=== PATIENT | male | born 1960 | race Caucasian/White ===

== ENCOUNTER 2017-04-14 05:09 | Inpatient (IN) | payer BC ==
[2017-04-14] VITALS (7 sets, daily range): BP systolic 78–94; BP diastolic 50–68
[~2017-04-14] VITALS: Ht 180.3 cm; Wt 103.0 kg
[2017-04-14] MEDS ORDERED: ONDANSETRON 4 MG/2 ML VIAL IV ONE ×2 (05:30→07:45)
[2017-04-14] MEDS ORDERED: HYDROMORPHONE 1 MG/1 ML DISP.SYRIN IV ONE ×3 (05:30→07:45)
[2017-04-14] MEDS ORDERED: IV NORMAL SALINE 1000 ML BAG IV ONE ×3 (05:30→08:15)
[2017-04-14] MEDS ORDERED: ONDANSETRON 4 MG/2 ML VIAL ONE ×2 (05:36→07:55)
--- NOTE | 2017-04-14 05:42 | NUR ---
Pt to room, changed into gown and placed on monitor. Pt ST. Pt c/o N/V/D since last night. Pt also c/o severe flank to low back pain. Pt seen by . DORA established. Labs drawn and sent. Pt medicated for pain and nausea, will monitor for effects of medications. Fluid bolus infusing freely to gravity. Pt resting in position of comfort for self.
[2017-04-14 05:44] LABS: BASOPHILS % (AUTO) 0.3 % (0.0-2.0); EOSINOPHILS # (AUTO) 0.1 K/uL (0.0-0.7); EOSINOPHILS % (AUTO) 1.3 % (0.0-7.0); LYMPHOCYTES # (AUTO) 0.1 K/UL (0.8-4.8); LYMPHOCYTES % (AUTO) 2.3 % (20.5-51.5); MEAN CORPUSCULAR HEMOGLOBIN 26.3 UUG (27.0-31.0); MEAN CORPUSCULAR HGB CONC 33 g/dL (32.0-37.0); MEAN CORPUSCULAR VOLUME 80.2 FL (82.0-92.0); MONOCYTES # (AUTO) 0.4 K/UL (0.1-1.30); MONOCYTES % (AUTO) 6.6 % (0.0-11.0); NEUTROPHILS # (AUTO) 5.5 K/UL (1.8-8.9); NEUTROPHILS % (AUTO) 89.5 % (38.5-71.5); PLATELET COUNT (AUTO) 160 K/UL (150-450); WHITE BLOOD COUNT (AUTO) 6.1 K/UL (4.0-11.2)
[2017-04-14 05:46] LABS: CREATININE 1.4 mg/dL (0.6-1.3); POTASSIUM 4.2 mmol/L (3.5-5.1)
[2017-04-14] MEDS ORDERED: HYDROMORPHONE 1 MG/1 ML DISP.SYRIN ONE ×3 (05:47→07:55)
[2017-04-14 05:52] LABS: BILIRUBIN,DIRECT 0.2 mg/dL (0.0-0.2); TOTAL PROTEIN, SERUM 7.7 g/dL (6.4-8.2)
[2017-04-14 05:54] LABS: HEMOGLOBIN 19.3 G/DL (14.0-18.0); RED BLOOD CELL COUNT(AUTO) 7.35 MIL/UL (4.7-6.1)
[2017-04-14 06:05] LABS: EOSINOPHILS % (MANUAL) 2 % (0-8); LYMPHOCYTES % (MANUAL) 5 % (20-40); MONOCYTES % (MANUAL) 7 % (2-10); NEUTROPHILS % (MANUAL) 86 % (42-75)
--- NOTE | 2017-04-14 06:14 | NUR ---
Pt sts pain improving from medication. Pt repositioned for comfort. Fluid bolus completed at this time.
[2017-04-14] MEDS ORDERED: IV LACTATED RINGERS SOLUTION 1,000 ML IV ONE (06:27)
[2017-04-14] MEDS ORDERED: KETOROLAC TROMETHAMINE 30 MG INJ IVP ONE (06:30)
--- NOTE | 2017-04-14 06:37 | NUR ---
PATIENT AND PATIENT'S UNABLE TO RECALL MEDICATION NAMES AND DOSAGES AT THIS TIME
[2017-04-14] MEDS ORDERED: KETOROLAC TROMETHAMINE 30 MG INJ ONE (06:43)
--- NOTE | 2017-04-14 07:28 | NUR ---
Pt returned from CT. Fluid bolus cont infusing freely to gravity. Pt tolerating po fluids, no further vomiting noted at this time. Resting in position of comfort for self.
--- NOTE | 2017-04-14 07:45 | NUR ---
Pt ambulated to restroom with steady gait, stool specimen obtained and sent to lab.
--- NOTE | 2017-04-14 08:09 | NUR ---
Report given and care endorsed to Juan RN
--- NOTE | 2017-04-14 10:19 | NUR ---
sbar report to matt galloway, belongings list/admit order completed. pt to rm 222 via aleah
[2017-04-14] MEDS ORDERED: ONDANSETRON 4 MG/2 ML VIAL IV PRN (11:15)
[2017-04-14] MEDS: IV NS 1000 ML 1,000 ML IV PRN (12:23)
[2017-04-14] MEDS: HYDROMORPHONE 1 MG/1 ML DISP.SYRIN IV PRN (13:11)
--- NOTE | 2017-04-14 16:00 | NUR ---
temp. 102.0, bp 82/57, pulse 109. Patient red & flushed. cooling measures. code sepsis called. Orders for bcx2, ua, urine culture, lactic acid, urine drug screen. Fluid challenge continued with 1L NS wide open. antibiotics held for now. suspect viral. Patient alert & oriented. Procedures explained. Verbalized understanding.
[2017-04-14] MEDS ORDERED: IV NS 1000 ML 1,000 ML IV ONE (16:45)
[2017-04-14 17:25] LABS: *AMPHETAMINE, URINE NEGATIVE (NEGATIVE); *BARBITURATE, URINE NEGATIVE (NEGATIVE); *CANNABINOID, URINE NEGATIVE (NEGATIVE); *COCCAINE, URINE NEGATIVE (NEGATIVE); *OPIATE, URINE POSITIVE (NEGATIVE); *PHENCYCLIDINE SCREEN,URINE NEGATIVE (NEGATIVE)
--- NOTE | 2017-04-14 18:00 | NUR ---
VITALS HAVE INCREASED RELATIVELY SLOW, TEMP HAS RETURNED TO 99.5, AFTER FLUIDS. BP SHOULD BE CONTINUOUSLY MONITORED BEFORE PAIN MEDICATION PATIENT IS FREQUENTLY REQUESTING NARCOTICS DESPITE CONTRAINDICATION.
[2017-04-14] MEDS: ACETAMINOPHEN 325 MG TABLET PO PRN (18:42)
--- NOTE | 2017-04-14 19:11 | NUR ---
REPORT GIVEN TO INSPECTION MANAGER, PATIENT IS STABLE.
[2017-04-15 00:33] VITALS: BP 97/68
[2017-04-15] MEDS: IV NS 1000 ML 1,000 ML IV PRN ×2 (02:41→20:13)
[2017-04-15 04:00] VITALS: BP 99/64
[2017-04-15] MEDS: PANTOPRAZOLE SODIUM 40 MG TABLET.DR PO SCH (06:33)
[2017-04-15] MEDS: HYDROMORPHONE 1 MG/1 ML DISP.SYRIN IV PRN ×5 (06:56→23:24)
[2017-04-15] MEDS ORDERED: IV NS 1000 ML 1,000 ML IV ONE ×2 (07:00→09:00)
[2017-04-15 07:16] LABS: EOSINOPHILS # (AUTO) 0.1 K/uL (0.0-0.7); EOSINOPHILS % (AUTO) 2.6 % (0.0-7.0); HEMATOCRIT 47.9 % (40-50); HEMOGLOBIN 15.7 G/DL (14.0-18.0); LYMPHOCYTES # (AUTO) 0.4 K/UL (0.8-4.8); LYMPHOCYTES % (AUTO) 8.4 % (20.5-51.5); MEAN CORPUSCULAR HEMOGLOBIN 26.4 UUG (27.0-31.0); MEAN CORPUSCULAR HGB CONC 33 g/dL (32.0-37.0); MEAN CORPUSCULAR VOLUME 80.5 FL (82.0-92.0); MONOCYTES # (AUTO) 0.4 K/UL (0.1-1.30); MONOCYTES % (AUTO) 7.1 % (0.0-11.0); NEUTROPHILS # (AUTO) 4.1 K/UL (1.8-8.9); NEUTROPHILS % (AUTO) 81.9 % (38.5-71.5); PLATELET COUNT (AUTO) 121 K/UL (150-450); RED BLOOD CELL COUNT(AUTO) 5.95 MIL/UL (4.7-6.1)
[2017-04-15 07:44] LABS: CREATININE 1.4 mg/dL (0.6-1.3); MAGNESIUM 1.5 mg/dL (1.8-2.4); PHOSPHOROUS 1.4 mg/dL (2.5-4.9); POTASSIUM 3.8 mmol/L (3.5-5.1)
[2017-04-15 10:53] LABS: BAND % (MANUAL) 11 % (0-10); EOSINOPHILS % (MANUAL) 1 % (0-8); LYMPHOCYTES % (MANUAL) 12 % (20-40); MONOCYTES % (MANUAL) 7 % (2-10); NEUTROPHILS % (MANUAL) 69 % (42-75)
[2017-04-15 11:43] VITALS: BP 114/69
[2017-04-15] MEDS: MAGNESIUM SULFATE/D5W 100 ML IV SCH ×2 (12:57→14:45)
[2017-04-15 15:38] VITALS: BP 107/78
[2017-04-15] MEDS ORDERED: NEUTRA PHOS PACKET PO ONE (15:45)
[2017-04-15 20:00] VITALS: BP 105/69
--- NOTE | 2017-04-15 23:45 | NUR ---
Received bedside report from SILVIA Castorena. Patient awake c/o lower back pain. No SOB denies chest pain. Dilaudid 1 mg IVP adm.
[2017-04-16] MEDS: ZOLPIDEM 5 MG TABLET PO PRN ×2 (01:53→23:57)
[2017-04-16] MEDS: ACETAMINOPHEN 325 MG TABLET PO PRN (01:53)
[2017-04-16] MEDS: HYDROMORPHONE 1 MG/1 ML DISP.SYRIN IV PRN ×5 (03:32→20:04)
[2017-04-16] MEDS: IV NS 1000 ML 1,000 ML IV PRN ×2 (05:45→19:05)
[2017-04-16] MEDS: PANTOPRAZOLE SODIUM 40 MG TABLET.DR PO SCH (05:46)
[2017-04-16 06:31] VITALS: BP 101/76
--- NOTE | 2017-04-16 07:00 | NUR ---
No significant change. Medicated for pain PRN. Kept comfortable.
[2017-04-16 07:16] LABS: BASOPHILS % (AUTO) 0.2 % (0.0-2.0); CREATININE 1.2 mg/dL (0.6-1.3); EOSINOPHILS # (AUTO) 0.4 K/uL (0.0-0.7); EOSINOPHILS % (AUTO) 6.6 % (0.0-7.0); HEMATOCRIT 47.3 % (40-50); HEMOGLOBIN 15.6 G/DL (14.0-18.0); LYMPHOCYTES # (AUTO) 0.8 K/UL (0.8-4.8); LYMPHOCYTES % (AUTO) 14.1 % (20.5-51.5); MEAN CORPUSCULAR HEMOGLOBIN 26.9 UUG (27.0-31.0); MEAN CORPUSCULAR HGB CONC 33 g/dL (32.0-37.0); MEAN CORPUSCULAR VOLUME 81.5 FL (82.0-92.0); MONOCYTES # (AUTO) 0.5 K/UL (0.1-1.30); MONOCYTES % (AUTO) 7.6 % (0.0-11.0); NEUTROPHILS # (AUTO) 4.2 K/UL (1.8-8.9); NEUTROPHILS % (AUTO) 71.5 % (38.5-71.5); PHOSPHOROUS 1.9 mg/dL (2.5-4.9); PLATELET COUNT (AUTO) 127 K/UL (150-450); POTASSIUM 3.6 mmol/L (3.5-5.1); RED BLOOD CELL COUNT(AUTO) 5.81 MIL/UL (4.7-6.1); WHITE BLOOD COUNT (AUTO) 5.9 K/UL (4.0-11.2)
[2017-04-16] MEDS: POTASSIUM PHOSPHATE MM 5 MMOL in IV DEXTROSE 5% 100 ML IV SCH ×5 (08:20→13:02)
--- NOTE | 2017-04-16 08:30 | NUR ---
AWAKE COOPERATE WELL NO N/V STATE PAIN MED HELP TO RELIEF PAIN RESITNG WELL WITH CALL LIGHT IN REAH
[2017-04-16 12:10] VITALS: BP 106/72
--- NOTE | 2017-04-16 14:00 | NUR ---
STATE HE WAS HUNGRY STILL ON CLEAR LIQ DIET WILL INFORM
[2017-04-16 15:35] VITALS: BP 112/75
--- NOTE | 2017-04-16 17:00 | NUR ---
DR DANIELS ,T SEEN PATIENT AND DIET ADV TO REGULAR EAT MOD AMT NO N/V OR PAIN
--- NOTE | 2017-04-16 18:00 | NUR ---
HEMODYNAMIC STATUS STABLE PAIN UNDER CONTROL SAFETY MEASURE PROVIDED CALL YOUSIF IN REACH
[2017-04-16 19:00] VITALS: BP 103/70
--- NOTE | 2017-04-16 19:00 | NUR ---
PATIENT ALERT ORIENTED, NO SOB NO CHEST PAIN NOTED, ON PAIN MANAGEMENT, NO S/S OF DISTRESS.
[2017-04-16 19:35] LABS: *BILIRUBIN,URIN NEGATIVE (NEGATIVE); *BLOOD, URINE Trace-intact (NEGATIVE); *CLARITY,URINE CLEAR (CLEAR); *COLOR,URINE YELLOW (YELLOW); *KETONES,URINE NEGATIVE (NEGATIVE); *PROTEIN,URINE NEGATIVE (NEGATIVE); LEUKOCYTE ESTERASE ,URINE NEGATIVE (NEGATIVE); NITRITE, URINE NEGATIVE (NEGATIVE); UGLUCOSE NEGATIVE (NEGATIVE)
[2017-04-16 20:37] LABS: RBC,URINE 0-3 /HPF (0-3); WBC,URINE NONE SEEN /HPF (0-3)
[2017-04-17] MEDS: HYDROMORPHONE 1 MG/1 ML DISP.SYRIN IV PRN ×3 (00:14→08:27)
[2017-04-17] MEDS: IV NS 1000 ML 1,000 ML IV PRN ×2 (02:44→09:55)
--- NOTE | 2017-04-17 03:52 | NUR ---
PATIENT IV SITE INFILTRATED, IV SITE WAS CHANGED TO DIFFERENT SITE, TOLERATE PROCEDURE WELL.
[2017-04-17 04:00] VITALS: BP 106/61
[2017-04-17] MEDS: PANTOPRAZOLE SODIUM 40 MG TABLET.DR PO SCH (06:16)
[2017-04-17 07:11] LABS: CREATININE 1.2 mg/dL (0.6-1.3); MAGNESIUM 1.7 mg/dL (1.8-2.4); PHOSPHOROUS 2.4 mg/dL (2.5-4.9); POTASSIUM 4.1 mmol/L (3.5-5.1)
[2017-04-17 07:20] LABS: BASOPHILS % (AUTO) 0.4 % (0.0-2.0); EOSINOPHILS # (AUTO) 0.4 K/uL (0.0-0.7); EOSINOPHILS % (AUTO) 8.5 % (0.0-7.0); HEMOGLOBIN 15.6 G/DL (14.0-18.0); LYMPHOCYTES # (AUTO) 0.9 K/UL (0.8-4.8); LYMPHOCYTES % (AUTO) 20.1 % (20.5-51.5); MEAN CORPUSCULAR HEMOGLOBIN 26.9 UUG (27.0-31.0); MEAN CORPUSCULAR HGB CONC 33 g/dL (32.0-37.0); MEAN CORPUSCULAR VOLUME 80.9 FL (82.0-92.0); MONOCYTES # (AUTO) 0.4 K/UL (0.1-1.30); MONOCYTES % (AUTO) 9.3 % (0.0-11.0); NEUTROPHILS # (AUTO) 2.7 K/UL (1.8-8.9); NEUTROPHILS % (AUTO) 61.7 % (38.5-71.5); PLATELET COUNT (AUTO) 153 K/UL (150-450)
--- NOTE | 2017-04-17 07:22 | NUR ---
PATIENT SLEPT MOST OF THE NIGHT ON PAIN MANAGEMENT, NO SOB NO CHEST PAIN NOTED. CONT TO MONITOR.
[2017-04-17 07:30] LABS: WHITE BLOOD COUNT (AUTO) 4.4 K/UL (4.0-11.2)
--- NOTE | 2017-04-17 08:00 | NUR ---
AWAKE ALERT COOPERATE WELL NO NAUSEA OR ABD PAIN AT THIS TIME EAT BREAKFAST WELL CALL YOUSIF IN REACH
[2017-04-17] MEDS ORDERED: MAGNESIUM OXIDE 400 MG TABLET PO ONE (09:45)
--- NOTE | 2017-04-17 10:00 | NUR ---
ELECTRICAL AUTOMATION ENGINEER FOR Frances FUNEZ C SEE PATIENT AND LAB RESULT MAG OX GIVE ORDER
--- NOTE | 2017-04-17 11:30 | NUR ---
DR DANIELS SEE PATIENT AND ORDER OK TO D/C HOME D/C INSTRUCTION REGARDING TO F/U WITH OWN PMD CALL FOR APPIONTMENT AND CONTINUE MEDICINE ORDERED VERBALIZES UNDERSTAND AND SIGNS D/C SHEET H; DISCONTINUE PRIOR D/C HOME TODAY PATIENT STATE DOES NOT TAKE MEDICINE AT HOME
[2017-04-17 11:41] VITALS: BP 116/77
--- NOTE | 2017-04-17 12:35 | NUR ---
D/C HOME WITH HIS BELONGING CONDITION STABLE ACCOMPANIES WITH FRIEND IV HL WAS D/C
== END 2017-04-17 12:40 | disposition home or self-care (01) | DRG 871 ==
LOC: ER 05:14 → TELE 09:54 → MED 04-15 14:55
PROVIDERS: ADMIT Nurse Practitioner Acute Care; ATTEND Nurse Practitioner Acute Care
DX: A41.89 Other specified sepsis (principal); N17.0 Acute kidney failure with tubular necrosis; A08.39 Other viral enteritis; E86.0 Dehydration; Z83.3 Family history of diabetes mellitus; Z82.49 Family history of ischemic heart disease and other diseases of the circulatory system; Z88.1 Allergy status to other antibiotic agents; D50.9 Iron deficiency anemia, unspecified; B97.89 Other viral agents as the cause of diseases classified elsewhere; D75.1 Secondary polycythemia
CPT/HCPCS: 36415; 74150; 80307; 83605; 83690; 83735; 84100; 85025; 87040; 87086; 87177; 89055; 93005; J1170; J1885; J2405; J3475; J3490; J7030; J7060; J7120

== ENCOUNTER 2021-03-05 00:49 | Inpatient (IN) | payer BC ==
[~2021-03-05] VITALS: Ht 180.3 cm; Wt 95.3 kg
[~2021-03-05 00:49] MED LIST: [UNRECOGNIZED DRUG - REMARK]
--- NOTE | 2021-03-05 00:50 | NUR ---
MD Smiley doing MSE on patient in triage bay.
[2021-03-05] MEDS ORDERED: PROCHLORPERAZINE EDISYLATE 10 MG/2 ML VIAL IV ONE (01:00)
--- NOTE | 2021-03-05 01:00 | NUR ---
60 y/o male presents to ED from home via [facility] for Nausea/Vomiting/Abd pain thats been persistent for 1 week. Pain is described as Sharp (8/10) and does radiate towards his back. Is present at rest and on exertion and patient did not try anything to relieve the pain. Patient is HIV positive. Patient is A&Ox4. No SI/HI/AH/VH. Able to take commands and make needs known. Steady gait. Patient is Tachycardic on initial assessment but has since normalized. No CP, no diaphoresis, no palpitations. No SOB, Sats > 94% on room air. GI/: Besides chief complaint - no other issues present. Patient has had a few episodes of emesis here in ED. No dysuria or hematemesis
[2021-03-05] MEDS ORDERED: HYDROMORPHONE 1 MG/1 ML DISP.SYRIN ONE (01:10)
[2021-03-05] MEDS ORDERED: PROCHLORPERAZINE EDISYLATE 10 MG/2 ML VIAL ONE (01:10)
[2021-03-05] MEDS ORDERED: BARIUM SULFATE 450 ML ORAL.SUSP ONE (01:18)
--- NOTE | 2021-03-05 01:20 | NUR ---
Patient given Grastrografin at this time. Instructed to finish mixture over the course of an hour. Radiology made aware of start time.
[2021-03-05] MEDS ORDERED: DIATR MEGLU/DIATRIZOATE SODIUM 30 ML BOTTLE ONE (01:21)
[2021-03-05] MEDS: HYDROMORPHONE 1 MG/1 ML DISP.SYRIN IV PRN ×2 (01:23→08:55)
[2021-03-05] MEDS: NORMAL SALINE FLUSH 10 ML DISP.SYRIN IV SCH ×4 (01:23→21:22)
[2021-03-05 01:26] LABS: BASOPHILS # (AUTO) 0.1 K/uL (0.0-8.0); EOSINOPHILS # (AUTO) 0.3 K/uL (0.0-0.7); NEUTROPHILS # (AUTO) 10.6 K/uL (1.8-8.9); PLATELET COUNT (AUTO) 311 K/uL (152-348)
[2021-03-05 01:28] LABS: BASOPHILS % (AUTO) 0.5 % (0.0-2.0); EOSINOPHILS % (AUTO) 2.4 % (0.0-7.0); LYMPHOCYTES % (AUTO) 14.7 % (20.5-51.5); MEAN CORPUSCULAR HEMOGLOBIN 29.6 uug (23.8-33.4); MEAN CORPUSCULAR HGB CONC 33 g/dL (32.5-36.3); MEAN CORPUSCULAR VOLUME 89.3 fL (73.0-96.2); MONOCYTES # (AUTO) 0.9 K/uL (2.0-10.0); MONOCYTES % (AUTO) 6.4 % (0.0-11.0); WHITE BLOOD COUNT (AUTO) 13.9 K/uL (3.6-10.2)
[2021-03-05 01:36] LABS: RED BLOOD CELL COUNT(AUTO) 7.28 MIL/uL (4.06-5.63)
--- NOTE | 2021-03-05 01:36 | NUR ---
Patient unable to recall any of his prescription medication. Unable to do any medication reconcilation at this time.
[2021-03-05 01:38] LABS: HEMOGLOBIN 21.5 g/dL (12.5-16.3)
--- NOTE | 2021-03-05 01:39 | NUR ---
Critical lab result called in by Jed in Lab. Hgb: 21.5 Hct 65.0 Verbal readback done. Information passed to Dr. Smiley.
[2021-03-05] MEDS ORDERED: IV NORMAL SALINE 1,000 ML IV ONE ×2 (01:45→02:15)
[2021-03-05 01:47] LABS: BILIRUBIN,DIRECT 0.1 mg/dL (0.0-0.2); BILIRUBIN,TOTAL 0.7 mg/dL (0.2-1.0); CREATININE 1.6 mg/dL (0.6-1.3); MAGNESIUM 2.2 mg/dL (1.8-2.4); POTASSIUM 5.8 mmol/L (3.5-5.1)
[2021-03-05 02:35] LABS: *BILIRUBIN,URIN 2+ (NEGATIVE); *BLOOD, URINE 2+ (NEGATIVE); *COLOR,URINE AMBER (YELLOW); *KETONES,URINE NEGATIVE (NEGATIVE); *UROBILINOGEN,URINE 0.2 E.U./dl (NORMAL); LEUKOCYTE ESTERASE ,URINE NEGATIVE (NEGATIVE); NITRITE, URINE NEGATIVE (NEGATIVE); PH,URINE 5.5 (5.0-8.0); UGLUCOSE NEGATIVE (NEGATIVE)
[2021-03-05 02:37] LABS: *CLARITY,URINE HAZY (CLEAR)
[2021-03-05 02:45] LABS: BACTERIA,URINE FEW /HPF (NONE SEEN); MUCUS,URINE MODERATE /LPF (0-FEW); SQUAMOUS EPITHELIAL CELL,UR MODERATE /HPF (NONE SEEN)
[2021-03-05] MEDS ORDERED: IV NORMAL SALINE 500 ML BAG IV ONE (03:00)
[2021-03-05] MEDS ORDERED: SWABABLE VALVE TRANSFER SET EA MC ONE (03:06)
[2021-03-05] MEDS ORDERED: IOHEXOL 300MG/ML 100 ML INFUS..BTL ONE (03:07)
[2021-03-05] MEDS ORDERED: IV NORMAL SALINE 250 ML IV ONE (03:07)
--- NOTE | 2021-03-05 03:09 | NUR ---
Patient down to CT at this time
--- NOTE | 2021-03-05 03:24 | NUR ---
Patient back from CT
--- NOTE | 2021-03-05 04:18 | NUR ---
Dr. Smiley on phone with [facility] entertainment production professional Dr. Hennessy. She has accepted patient for admission with MATTHEW status - Dx Abdominal Pain
[2021-03-05] MEDS ORDERED: ONDANSETRON 4 MG/2 ML VIAL IV PRN (04:30)
[2021-03-05] MEDS ORDERED: MAGNESIUM HYDROXIDE 30 ML LIQUID UDC PO PRN (04:30)
[2021-03-05] MEDS ORDERED: MORPHINE SULFATE 2 MG/1 ML DISP.SYRIN IV PRN (04:30)
[2021-03-05] MEDS ORDERED: IV 1/2NS 1000 ML 1,000 ML IV PRN (04:30)
[2021-03-05] MEDS ORDERED: ACETAMINOPHEN 325 MG TABLET PO PRN (04:30)
[2021-03-05] MEDS ORDERED: Z GUARD REMEDY PASTE 57 GM TUBE TOP PRN (04:30)
--- NOTE | 2021-03-05 04:50 | NUR ---
Patient transferred to Room 309 via Wheelchair under the care of Raffaele RN - MATTHEW status. Belongings with patient. VSS. Stable condition.
--- NOTE | 2021-03-05 04:50 | NUR ---
ADMITTED PATIENT ON TELEMETRY TD UNDER THE CARE OF DAYANA MANUFACTURING SPECIALIST, PATIENT ALERT ORIENTED, NO SOB NO CHEST PAIN, NO TEETH, NPO AT THIS TIME, COMPLAIN OF ABDOMINAL PAIN, WILL MEDICATE FOR PAIN. PATIENT HAD SOFT LARGE BM AND VOIDING FREELY. CONT TO MONITOR.
[2021-03-05 05:54] VITALS: BP 123/84
--- NOTE | 2021-03-05 07:25 | NUR ---
PATIENT ASLEEP BUT AROUSABLE, TELE MONITOR SINUS RHYTHM 95, RA, PATIENT MEDICATION EFFECTIVE AT THIS TIME, CALL LIGHT WITHIN REACH, NO FURTHER EPISODE OF NAUSEA VOMITING AT THIS TIME. ENDORSE TO NEXT SHIFT.
--- NOTE | 2021-03-05 07:30 | NUR ---
Patient report received from night assistant. Pt is alert and oriented x 4. Skin in tact. Pt is on MATTHEW, sinus rhythm on monitor. Comfortable on room air, no reports of shortness of breath. Pt is continent and able to ambulate. Pt complains of diarrhea and abdominal pain. IV right AC 20g running 125 ml/hr. Patient is currently NPO. Bed in low and locked position. Safety precautions in place. Call light with in reach.
[2021-03-05] MEDS: PANTOPRAZOLE SODIUM 40 MG VIAL IV SCH (08:40)
[2021-03-05 08:45] LABS: BASOPHILS # (AUTO) 0.1 K/uL (0.0-8.0); EOSINOPHILS # (AUTO) 0.2 K/uL (0.0-0.7); EOSINOPHILS % (AUTO) 3.3 % (0.0-7.0); HEMATOCRIT 56.2 % (36.7-47.1); HEMOGLOBIN 18.1 g/dL (12.5-16.3); LYMPHOCYTES # (AUTO) 1.6 K/uL (20.0-40.0); LYMPHOCYTES % (AUTO) 20.5 % (20.5-51.5); MEAN CORPUSCULAR HEMOGLOBIN 29.5 uug (23.8-33.4); MEAN CORPUSCULAR HGB CONC 32 g/dL (32.5-36.3); MEAN CORPUSCULAR VOLUME 91.3 fL (73.0-96.2); MONOCYTES # (AUTO) 0.8 K/uL (2.0-10.0); MONOCYTES % (AUTO) 10.3 % (0.0-11.0); NEUTROPHILS % (AUTO) 64.9 % (38.5-71.5); PLATELET COUNT (AUTO) 232 K/uL (152-348); RED BLOOD CELL COUNT(AUTO) 6.16 MIL/uL (4.06-5.63); WHITE BLOOD COUNT (AUTO) 7.6 K/uL (3.6-10.2)
[2021-03-05 08:53] LABS: BILIRUBIN,TOTAL 0.5 mg/dL (0.2-1.0); CREATININE 1.2 mg/dL (0.6-1.3); MAGNESIUM 1.9 mg/dL (1.8-2.4); PHOSPHOROUS 3.1 mg/dL (2.5-4.9); POTASSIUM 5.1 mmol/L (3.5-5.1); TOTAL PROTEIN, SERUM 6.4 g/dL (6.4-8.2)
[2021-03-05 09:26] LABS: *BILIRUBIN,URIN NEGATIVE (NEGATIVE); *CLARITY,URINE SLIGHTLY CLOUDY (CLEAR); *COLOR,URINE YELLOW (YELLOW); *KETONES,URINE NEGATIVE (NEGATIVE); *UROBILINOGEN,URINE 0.2 E.U./dl (NORMAL); LEUKOCYTE ESTERASE ,URINE NEGATIVE (NEGATIVE); NITRITE, URINE NEGATIVE (NEGATIVE); PH,URINE 5.5 (5.0-8.0); UGLUCOSE NEGATIVE (NEGATIVE)
[2021-03-05 10:09] LABS: *BLOOD, URINE TRACE (NEGATIVE)
[2021-03-05] MEDS ORDERED: INSULIN REGULAR, HUMAN 300 UNIT/3 ML VIAL SQ PRN (10:45)
[2021-03-05] MEDS ORDERED: DEXTROSE 50% 50 ML DISP.SYRIN IV PRN (10:45)
[2021-03-05] MEDS: levoFLOXacin 500 MG/D5W 500 MG in PREMIXED 1 EACH IV SCH (11:37)
[2021-03-05] MEDS: IV 1/2NS 1000 ML 1,000 ML IV SCH ×2 (11:40→15:09)
[2021-03-05 12:00] VITALS: BP 119/77
[2021-03-05] MEDS: BLOOD SUGAR DIAGNOSTIC 1 EACH STRIP VI SCH ×2 (12:00→18:18)
[2021-03-05] MEDS: MORPHINE SULFATE 4 MG/1 ML DISP.SYRIN IV PRN ×3 (13:13→22:41)
[2021-03-05 13:54] LABS: *URINE TOTAL PROTEIN RANDOM 45.7 mg/dL (<150/24HR)
--- NOTE | 2021-03-05 14:16 | NUR ---
Field Technical Assistant consultation: This INFORMATICA MDM ARCHITECT met with the patient today to assess for psychosocial needs. Patient is a 60 year old male, who came to the ED on 03/05/21 for abdominal pain, after having pain, vomiting, and diarrhea over a span of 3 days. Patient is awake, alert, oriented x 4, receptive to meeting with this INFORMATICA MDM ARCHITECT. Patient lives at home with his , Beck Mei, who is his emergency contact. Patient confirmed his address, [address] [place] [address]. [address], [place] [address], . Patient's Beck's phone number is [phone]. Patient stated that he also has 2 foster children at home, 2 boys, 7 and 4 years old. This INFORMATICA MDM ARCHITECT explored patient's psychosocial needs, and patient stated that he is HIV+, however is under the regular care of his PCP, compliant with his medications, and has no concerns at this time. Patient stated that he has the necessary supportive services in place, and did not feel he needed any additional services. Patient did not report any current use of substances, no hx of mental illness. Discharge plans discussed, and patient stated that he would be returning home after this hospitalization. At this time, no further SS interventions are needed, however social media content specialist will remain available, as needed.
[2021-03-05] MEDS ORDERED: VIT D3 PO (14:59)
[2021-03-05] MEDS ORDERED: VILA40TA PO (14:59)
[2021-03-05] MEDS ORDERED: LINA1TAB5 PO (14:59)
[2021-03-05] MEDS ORDERED: ROSU20TA2 PO (14:59)
[2021-03-05] MEDS ORDERED: ASPI81TA31 PO (14:59)
[2021-03-05] MEDS ORDERED: TADA5TAB2 PO (14:59)
[2021-03-05] MEDS ORDERED: DOLU50TA PO (14:59)
[2021-03-05] MEDS ORDERED: EMTR1TAB13 PO (14:59)
[2021-03-05] MEDS ORDERED: LISI20TA30 PO (14:59)
[2021-03-05] MEDS: METRONIDAZOLE 500 MG/NS 100ML 500 MG in PREMIXED 1 EACH IV SCH ×2 (15:01→21:22)
[2021-03-05 16:00] VITALS: BP 115/81
[2021-03-05] MEDS ORDERED: CELE200C PO (18:45)
[2021-03-05 18:46] LABS: BACTERIA,URINE NONE SEEN /HPF (NONE SEEN); MUCUS,URINE FEW /LPF (0-FEW); SQUAMOUS EPITHELIAL CELL,UR FEW /HPF (NONE SEEN); WBC,URINE 0-3 /HPF (0-3)
[2021-03-05 18:53] LABS: EOSINOPHILS % (MANUAL) 6 % (0-8); LYMPHOCYTES % (MANUAL) 17 % (20-40); MONOCYTES % (MANUAL) 2 % (2-10); NEUTROPHILS % (MANUAL) 75 % (42-75)
[2021-03-05] MEDS ORDERED: MODA100T29 PO (18:55)
[2021-03-05 19:22] LABS: *CREATININE,URINE 134.4 mg/dL (30-125)
[2021-03-05] MEDS ORDERED: HOME MED MISCELLANEOUS XX SCH (19:30)
--- NOTE | 2021-03-05 19:30 | NUR ---
Patient resting in bed. Alert and oriented x 4. Patient transferred from MATTHEW to TELE. Patient is sinus rhythm on monitor. No reports of pain at this time. Comfortable on room air. No reports of chest pain or signs of distress. Patient is no longer NPO, changed to full liquid diet. Pt resting comfortably. Home medications sent to pharmacy with orders from to continue.
--- NOTE | 2021-03-05 19:30 | NUR ---
ROUNDS MADE AND B/S REPORT FROM THE DAY SHIFT RN DONE . DAY SHIFT RN AND SPINE NURSE RN AT B/S AND INTRODUCE SELF TO PATIENT . ASKED PATIENT IF HE NEEDS SOMETHING HE SAID NONE FOR NOW .
[2021-03-05] MEDS ORDERED: CELECOXIB 200 MG CAPSULE PO PRN (19:45)
[2021-03-05 20:00] VITALS: BP 119/92
--- NOTE | 2021-03-05 21:25 | NUR ---
AT B/S GIVEN FLAGYL IVF ,CHECKED IVF 1/2 NS AT 80 ML/HR SITE PATENT AND INTACT .
--- NOTE | 2021-03-05 21:30 | NUR ---
PATIENT ASKED FOR SOMETHING TO EAT INFORMED HIS ON FULL LIQUID HE SAID HIS BEEN NOTHING BY MOUTH SINCE ADMISSION AND HE SAID NOTHING SAUCEDO WITH HIS ABDOMEN NO BM NO DIARRHEA .
--- NOTE | 2021-03-05 21:45 | NUR ---
PATIENT CALLED AND REQUESTING FOR FOOD . GIVEN 1 HAM SANDWICH AND 1 TURKEY SANDWICH . PATIENT ABLE TO FEED SELF .
--- NOTE | 2021-03-05 22:10 | NUR ---
patient screaming and yelling went to the station and wants pain medication and per patients been asking for it for 1 hour ,but its not true he called the desk and the media monitor,answered the light and called me the RN at this time i was in room 314 so i said i will be there as soon as i finish with bed 314.given morphine prn medication see emar .
--- NOTE | 2021-03-05 22:24 | NUR ---
given Zofran to help him with his stomach ,he said been going to the bathroom yesterday i asked if he have diarrhea he said no diarrhea no bm
--- NOTE | 2021-03-05 22:24 | NUR ---
called again and wants medication to help him the pain i said said he had the morphine but this time he wants all medication that can help him with pain . given [place] po.patient very upset and very anxious .
--- NOTE | 2021-03-05 22:30 | NUR ---
PATIENT REMOVED HEART MONITOR ,FIGURE REFINISHER AND REPAIRER CALLED RN ATTENTION RN WENT TO ROOM ADVISED THAT HE NEEDS TO WEAR THE HEART MONITOR PATIENT REFUSED HEART MONITOR AND HE SAID HE HAD NO PROBLEM .
[2021-03-05] MEDS: HYDROCODONE/APAP 5-325MG TABLET PO PRN (22:42)
[2021-03-06] VITALS: BP 118/87
[2021-03-06] MEDS ORDERED: LORAZEPAM 2 MG/1 ML VIAL IV ONE
--- NOTE | 2021-03-06 00:05 | NUR ---
given x1mg ivp Ativan as per patient requested unable to sleep and very anxious .
--- NOTE | 2021-03-06 00:20 | NUR ---
f/s done blood sugar 148 mg/dl , as per patient dont want insulin and is good with his diet .
--- NOTE | 2021-03-06 01:30 | NUR ---
WENT TO CHECKED ON PATIENT ENCOURAGE TO WEAR HEART MONITOR PATIENT STRONGLY REFUSED .
--- NOTE | 2021-03-06 02:00 | NUR ---
PATIENT IN BED SLEEPING NO RESPIRATORY DISTRESS BREATHING EVEN AND UNLABORED IN BED ASLEEP .IVF IN FUSING AND IN PROGRESS .
[2021-03-06 04:00] VITALS: BP 113/77
[2021-03-06] MEDS: METRONIDAZOLE 500 MG/NS 100ML 500 MG in PREMIXED 1 EACH IV SCH ×3 (05:09→22:20)
[2021-03-06] MEDS: NORMAL SALINE FLUSH 10 ML DISP.SYRIN IV SCH ×3 (05:10→22:20)
[2021-03-06] MEDS: IV 1/2NS 1000 ML 1,000 ML IV SCH (05:23)
--- NOTE | 2021-03-06 07:45 | NUR ---
RECEIVED PATIENT IN BED. PATIENT AOX4. COMPLAINING THAT HE IS STILL ON FULL LIQUID DIET AND HE WANTS TO HAVE A REGULAR BREAKFAST NOW. REFUSED TO WEAR HEART MONITOR PER MD ORDER. PATIENT DEMANDED NURSE CALL MD FOR DIET CHANGE. SAFETY AND FALL PREVENTION IN PLACE. CALL LIGHT IN REACH. WILL CONTINUE TO MONITOR.
[2021-03-06 07:48] LABS: BASOPHILS # (AUTO) 0.1 K/uL (0.0-8.0); BASOPHILS % (AUTO) 1.6 % (0.0-2.0); EOSINOPHILS # (AUTO) 0.4 K/uL (0.0-0.7); EOSINOPHILS % (AUTO) 6.8 % (0.0-7.0); HEMATOCRIT 54.7 % (36.7-47.1); HEMOGLOBIN 17.9 g/dL (12.5-16.3); LYMPHOCYTES # (AUTO) 1.3 K/uL (20.0-40.0); LYMPHOCYTES % (AUTO) 25.6 % (20.5-51.5); MEAN CORPUSCULAR HEMOGLOBIN 29.5 uug (23.8-33.4); MEAN CORPUSCULAR HGB CONC 33 g/dL (32.5-36.3); MEAN CORPUSCULAR VOLUME 90.3 fL (73.0-96.2); MONOCYTES # (AUTO) 0.7 K/uL (2.0-10.0); MONOCYTES % (AUTO) 12.8 % (0.0-11.0); NEUTROPHILS # (AUTO) 2.8 K/uL (1.8-8.9); NEUTROPHILS % (AUTO) 53.2 % (38.5-71.5); PLATELET COUNT (AUTO) 236 K/uL (152-348); RED BLOOD CELL COUNT(AUTO) 6.06 MIL/uL (4.06-5.63); WHITE BLOOD COUNT (AUTO) 5.2 K/uL (3.6-10.2)
[2021-03-06 07:59] LABS: BILIRUBIN,TOTAL 0.8 mg/dL (0.2-1.0); CREATININE 1.2 mg/dL (0.6-1.3); MAGNESIUM 1.9 mg/dL (1.8-2.4); POTASSIUM 4.6 mmol/L (3.5-5.1); TOTAL PROTEIN, SERUM 6.5 g/dL (6.4-8.2)
[2021-03-06 08:05] LABS: THYROID STIMULATING HORMONE 3.791 mIU/mL (0.358-3.740)
[2021-03-06] MEDS ORDERED: Medication Not On Formulary EA (Dolutegravir Sodium (Tivicay) 50 MG) PO SCH (09:00)
[2021-03-06] MEDS ORDERED: Medication Not On Formulary EA (Emtricitabine/Tenofov Alafenam (Descovy 200-25 mg Tablet PO SCH (09:00)
[2021-03-06] MEDS ORDERED: LINAGLIPTIN PO SCH (09:00)
[2021-03-06] MEDS ORDERED: METFORMIN HCL PO SCH (09:00)
[2021-03-06] MEDS ORDERED: [UNRECOGNIZED DRUG - OTHER] PO SCH (09:00)
--- NOTE | 2021-03-06 09:00 | NUR ---
ORDERS RECEIVED FOR DIET CHANGE.
--- NOTE | 2021-03-06 11:19 | NUR ---
TRIED TO ADMINISTER AM MEDICATION THREE TIMES. PATIENT REFUSED AM MEDICATION WITH CHRISTIANE THE NURSE. PATIENT STATED THAT NURSE LIED TO HIM. PATIENT DEMANDING NEW NURSE TO TAKE CARE OF HIM FROM NON. REPORT TO BE GIVEN TO NEW NURSE
--- NOTE | 2021-03-06 11:30 | NUR ---
received report on pt, pt has been very difficult with previous nurse. pt was willing to take all meds as ordered, ativan and morphine given to pt prior. pt awake alert and oriented x4, on room air, no signs of distress no reports of pain at this time. will continue to monitor.
[2021-03-06] MEDS: VIIBRYD 40 MG PO SCH (11:35)
[2021-03-06] MEDS: MORPHINE SULFATE 4 MG/1 ML DISP.SYRIN IV PRN ×4 (11:35→23:35)
[2021-03-06] MEDS: PANTOPRAZOLE SODIUM 40 MG VIAL IV SCH (11:59)
[2021-03-06 12:00] VITALS: BP 114/68
[2021-03-06] MEDS: DESCOVY PO SCH (12:00)
[2021-03-06] MEDS: JENTADUETO PO SCH (12:00)
[2021-03-06] MEDS: TIVICAY PO SCH (12:00)
[2021-03-06] MEDS: levoFLOXacin 500 MG/D5W 500 MG in PREMIXED 1 EACH IV SCH (12:01)
[2021-03-06] MEDS: ASPIRIN 81 MG TAB.CHEW PO SCH (13:31)
[2021-03-06] MEDS ORDERED: ERGO500040 PO (15:32)
--- NOTE | 2021-03-06 18:41 | NUR ---
pt in bed resting, a/o x4, all medications given as ordered. stool sample collected and sent to lab to rule out C-diff., pt saturating well on room air, no reports of pain at this time. last dose of morphine given at 1540, pt is ambulatory, on regular diet, continent, IV access on the right FA 1/2 NS infusing at 80cc. bed i low and locked position, call light within reach, safety precautions in place, will endorse to oncoming nurse.
[2021-03-06] MEDS: IV 1/2NS 1000 ML 1,000 ML IV PRN (20:00)
[2021-03-06 20:28] VITALS: BP 118/82
[2021-03-06] MEDS ORDERED: ATORVASTATIN 10 MG TABLET PO SCH (21:00)
[2021-03-06] MEDS: HYDROCODONE/APAP 5-325MG TABLET PO PRN (22:25)
[2021-03-07] MEDS ORDERED: ZOLPIDEM 5 MG TABLET PO PRN (00:45)
[2021-03-07] MEDS: MORPHINE SULFATE 4 MG/1 ML DISP.SYRIN IV PRN ×3 (03:39→12:12)
[2021-03-07] MEDS: METRONIDAZOLE 500 MG/NS 100ML 500 MG in PREMIXED 1 EACH IV SCH (05:38)
[2021-03-07] MEDS: NORMAL SALINE FLUSH 10 ML DISP.SYRIN IV SCH ×2 (05:40→13:29)
[2021-03-07 05:45] VITALS: BP 128/83
[2021-03-07] MEDS: HYDROCODONE/APAP 5-325MG TABLET PO PRN ×2 (05:48→14:26)
[2021-03-07 06:20] LABS: BASOPHILS # (AUTO) 0.1 K/uL (0.0-8.0); BASOPHILS % (AUTO) 1.8 % (0.0-2.0); EOSINOPHILS # (AUTO) 0.3 K/uL (0.0-0.7); EOSINOPHILS % (AUTO) 6.8 % (0.0-7.0); HEMATOCRIT 55.4 % (36.7-47.1); HEMOGLOBIN 18.3 g/dL (12.5-16.3); LYMPHOCYTES # (AUTO) 1.4 K/uL (20.0-40.0); LYMPHOCYTES % (AUTO) 28.2 % (20.5-51.5); MEAN CORPUSCULAR HEMOGLOBIN 29.6 uug (23.8-33.4); MEAN CORPUSCULAR HGB CONC 33 g/dL (32.5-36.3); MEAN CORPUSCULAR VOLUME 89.6 fL (73.0-96.2); MONOCYTES # (AUTO) 0.6 K/uL (2.0-10.0); MONOCYTES % (AUTO) 12.3 % (0.0-11.0); NEUTROPHILS # (AUTO) 2.6 K/uL (1.8-8.9); NEUTROPHILS % (AUTO) 50.9 % (38.5-71.5); PLATELET COUNT (AUTO) 217 K/uL (152-348); RED BLOOD CELL COUNT(AUTO) 6.18 MIL/uL (4.06-5.63); WHITE BLOOD COUNT (AUTO) 5.1 K/uL (3.6-10.2)
[2021-03-07 06:37] LABS: BILIRUBIN,TOTAL 0.4 mg/dL (0.2-1.0); CREATININE 1.2 mg/dL (0.6-1.3); POTASSIUM 4.3 mmol/L (3.5-5.1); TOTAL PROTEIN, SERUM 6.7 g/dL (6.4-8.2)
[2021-03-07] MEDS: IV 1/2NS 1000 ML 1,000 ML IV PRN (07:07)
[2021-03-07] MEDS: PANTOPRAZOLE SODIUM 40 MG VIAL IV SCH (08:16)
[2021-03-07] MEDS: ASPIRIN 81 MG TAB.CHEW PO SCH (08:16)
[2021-03-07] MEDS: levoFLOXacin 500 MG/D5W 500 MG in PREMIXED 1 EACH IV SCH (08:16)
[2021-03-07] MEDS: TIVICAY PO SCH (08:17)
[2021-03-07] MEDS: JENTADUETO PO SCH (08:17)
[2021-03-07] MEDS: VIIBRYD 40 MG PO SCH (08:17)
[2021-03-07] MEDS: DESCOVY PO SCH (08:17)
[2021-03-07 09:00] VITALS: BP 137/93
--- NOTE | 2021-03-07 11:31 | NUR ---
care taken over, alert, oriented, and appropriate. " i will have my morphine at 12:30 this noon, " , assured him , the med will be administered on time as requested.. very vague when described pain, " everywhere".
[2021-03-07 12:05] VITALS: BP 118/80
[2021-03-07] MEDS ORDERED: METRONIDAZOLE 500 MG TABLET PO SCH (14:00)
--- NOTE | 2021-03-07 15:24 | NUR ---
finished the whole lunch, 100%, asking for extra sandwiches, and beverages given. Denied abdominal pain after eating, and ready to go home, insist he have RX for pain, Percocet. Attending made aware, and RX sent to his preferred pharmacy, patient is ready to go home once paper work finished. concerning vaccine for this year, " had been vaccinated for Covid, and flu current"
[2021-03-07 16:00] VITALS: BP 133/98
[2021-03-07] MEDS ORDERED: PANT40TA2 PO (16:32)
[2021-03-07] MEDS ORDERED: OXYC-128 PO (16:32)
[2021-03-07] MEDS ORDERED: ATOR10TA PO (16:32)
--- NOTE | 2021-03-07 17:22 | NUR ---
alert, oriented, and conversant, denied abdominal pain, after one po M[place]od given at 1430. RX for oxycodone sent to his preferred farmarcy, by attending, and patient knows he is going to pick it up on the way home. patient discharged to home, picked up by significant other just now , at 1715
[2021-03-08] MEDS ORDERED: PANTOPRAZOLE SODIUM 40 MG TABLET.DR PO SCH (07:00)
[2021-03-08] MEDS ORDERED: levoFLOXacin 500 MG TABLET PO SCH (11:00)
[2021-03-11 18:15] LABS: M-SPIKE Not Observed
[2021-03-11 18:17] LABS: ALBUMIN 2.9; ALPHA-1-GLOBULIN 0.2
[2021-03-11 18:18] LABS: ALPHA-2-GLOBULIN 0.9; BETA GLOBULIN 1.1; GAMMA GLOBULIN 0.7
[2021-03-11 18:23] LABS: *VITAMIN D 25-OH, D2 1.2 ng/mL (.)
== END 2021-03-07 17:30 | disposition home or self-care (01) | DRG 438 ==
LOC: ER 00:51 → TELE-TD3 04:42 → TELE3 17:49 → MEDSURG3 03-06 10:05
PROVIDERS: ADMIT Internal Medicine; ATTEND Internal Medicine
DX: K85.90 Acute pancreatitis without necrosis or infection, unspecified (principal); N17.0 Acute kidney failure with tubular necrosis; N00.9 Acute nephritic syndrome with unspecified morphologic changes; E87.5 Hyperkalemia; E86.0 Dehydration; D75.1 Secondary polycythemia; I10 Essential (primary) hypertension; E66.9 Obesity, unspecified; E11.9 Type 2 diabetes mellitus without complications; K80.20 Calculus of gallbladder without cholecystitis without obstruction; N13.9 Obstructive and reflux uropathy, unspecified; Z20.822 Contact with and (suspected) exposure to COVID-19; F41.9 Anxiety disorder, unspecified; K29.70 Gastritis, unspecified, without bleeding; M19.90 Unspecified osteoarthritis, unspecified site; Z68.29 Body mass index [BMI] 29.0-29.9, adult; D72.829 Elevated white blood cell count, unspecified; Z79.84 Long term (current) use of oral hypoglycemic drugs; K52.9 Noninfective gastroenteritis and colitis, unspecified; Z79.1 Long term (current) use of non-steroidal anti-inflammatories (NSAID); Z79.899 Other long term (current) drug therapy; E83.52 Hypercalcemia; T46.4X5A Adverse effect of angiotensin-converting-enzyme inhibitors, initial encounter; Y92.89 Other specified places as the place of occurrence of the external cause; Z87.891 Personal history of nicotine dependence
CPT/HCPCS: 36415; 70030-TC; 71045; 83690; 83735; 83970; 84100; 84155; 84156; 84165; 84300; 84443; 85025; 85730; 87086; 93005; C9113; G0378; J0780; J1170; J1815; J1956; J2060; J2270; J2405; J3490; J7030; J7050; Q9951; Q9963; Q9967

== ENCOUNTER 2021-06-15 22:45 | Inpatient (IN) | payer BC ==
[~2021-06-15] VITALS: Ht 177.8 cm; Wt 95.3 kg
[~2021-06-15 22:45] MED LIST changes: +ASPI81TA31 PO; +ATOR10TA PO; +CELE200C PO; +DOLU50TA PO; +EMTR1TAB13 PO; +ERGO500040 PO; +LINA1TAB5 PO; +LISI20TA30 PO; +MODA100T29 PO; +OXYC-128 PO; +PANT40TA2 PO; +ROSU20TA2 PO; +TADA5TAB2 PO; +VILA40TA PO; -[UNRECOGNIZED DRUG - REMARK]
[2021-06-15] MEDS ORDERED: HYDROMORPHONE 1 MG/1 ML DISP.SYRIN IV ONE (23:30)
[2021-06-15] MEDS ORDERED: KETOROLAC TROMETHAMINE 15 MG INJ IVP ONE (23:30)
[2021-06-15] MEDS ORDERED: IV NORMAL SALINE 1000 ML BAG IV ONE (23:30)
[2021-06-15] MEDS ORDERED: ONDANSETRON 4 MG/2 ML VIAL IV ONE (23:30)
[2021-06-15 23:45] LABS: HEMATOCRIT 52.5 % (36.7-47.1); MEAN CORPUSCULAR HEMOGLOBIN 27.7 uug (23.8-33.4); MEAN CORPUSCULAR VOLUME 85.5 fL (73.0-96.2); PLATELET COUNT (AUTO) 290 K/uL (152-348)
[2021-06-15 23:46] LABS: CREATININE 1.5 mg/dL (0.6-1.3); POTASSIUM 3.7 mmol/L (3.5-5.1)
[2021-06-15 23:52] LABS: BILIRUBIN,TOTAL 2.2 mg/dL (0.2-1.0); TOTAL PROTEIN, SERUM 7.7 g/dL (6.4-8.2)
[2021-06-15 23:58] LABS: PHOSPHOROUS 3.5 mg/dL (2.5-4.9)
[2021-06-16] MEDS ORDERED: HYDROMORPHONE 1 MG/1 ML DISP.SYRIN ONE ×6 (00:05→17:12)
[2021-06-16] MEDS ORDERED: ONDANSETRON 4 MG/2 ML VIAL ONE (00:06)
[2021-06-16] MEDS ORDERED: KETOROLAC TROMETHAMINE 30 MG INJ ONE (00:06)
[2021-06-16 00:08] LABS: BILIRUBIN,DIRECT 1.8 mg/dL (0.0-0.2)
--- NOTE | 2021-06-16 00:13 | NUR ---
pt taken to ct
[2021-06-16] MEDS ORDERED: IV NORMAL SALINE 1000 ML BAG IV ONE ×2 (00:15→00:45)
[2021-06-16] MEDS ORDERED: PROCHLORPERAZINE EDISYLATE 10 MG/2 ML VIAL IV ONE (01:00)
[2021-06-16] MEDS ORDERED: PROCHLORPERAZINE EDISYLATE 10 MG/2 ML VIAL ONE (01:06)
[2021-06-16 01:42] LABS: *BILIRUBIN,URIN 3+ (NEGATIVE); *CLARITY,URINE CLEAR (CLEAR); *COLOR,URINE AMBER (YELLOW); *KETONES,URINE NEGATIVE (NEGATIVE); LEUKOCYTE ESTERASE ,URINE NEGATIVE (NEGATIVE); NITRITE, URINE NEGATIVE (NEGATIVE); UGLUCOSE NEGATIVE (NEGATIVE)
[2021-06-16] MEDS ORDERED: HYDROMORPHONE 1 MG/1 ML DISP.SYRIN IV ONE (01:45)
[2021-06-16 01:52] LABS: *BLOOD, URINE TRACE (NEGATIVE); BACTERIA,URINE NONE SEEN /HPF (NONE SEEN); SQUAMOUS EPITHELIAL CELL,UR FEW /HPF (NONE SEEN); WBC,URINE 0-3 /HPF (0-3)
[2021-06-16 01:53] LABS: COARSE GRANULAR CASTS,URINE 0-3 /LPF; MUCUS,URINE MODERATE /LPF (0-FEW)
[2021-06-16] MEDS ORDERED: MAGNESIUM HYDROXIDE 30 ML LIQUID UDC PO PRN (02:30)
[2021-06-16] MEDS ORDERED: HYDROMORPHONE 1 MG/1 ML DISP.SYRIN IV PRN (02:30)
[2021-06-16] MEDS: ACETAMINOPHEN 325 MG TABLET PO PRN ×2 (05:53→13:59)
[2021-06-16 05:56] LABS: MEAN CORPUSCULAR HEMOGLOBIN 27.2 uug (23.8-33.4); MEAN CORPUSCULAR VOLUME 85.5 fL (73.0-96.2); PLATELET COUNT (AUTO) 230 K/uL (152-348)
[2021-06-16] MEDS ORDERED: ACETAMINOPHEN 325 MG TABLET ONE ×2 (05:57→14:07)
[2021-06-16 06:05] LABS: CREATININE 1.6 mg/dL (0.6-1.3); PHOSPHOROUS 3.7 mg/dL (2.5-4.9); POTASSIUM 4.7 mmol/L (3.5-5.1); TOTAL PROTEIN, SERUM 6.5 g/dL (6.4-8.2)
[2021-06-16] MEDS: HYDROMORPHONE 1 MG/1 ML DISP.SYRIN IV PRN ×4 (07:55→17:06)
--- NOTE | 2021-06-16 08:34 | NUR ---
PT IS IN BED , RESTING COMFORTABLY. NO S/S OF ACUTE DISTRESS. CONTINUE TO MONITOR THE PT.
[2021-06-16] MEDS: IV NS 1000 ML 1,000 ML IV PRN ×2 (10:30→19:47)
--- NOTE | 2021-06-16 10:33 | NUR ---
DR ANNE WAS CALLED TO VERIFY MEDICAL ORDERS FOR THE PT.
--- NOTE | 2021-06-16 13:18 | NUR ---
MRI DEPARTMENT OF [facility] WAS CALLED TO ARRANGE PT's MRI OF THE ABDOMEN AND PELVIS. TALKED TO NIL.
--- NOTE | 2021-06-16 13:26 | NUR ---
[facility] WAS CALLED TO TRANSFER PT TO [facility] FOR MRI PROCEDURE. [place] IS 1 HOUR.
--- NOTE | 2021-06-16 14:13 | NUR ---
PT WENT TO MRI DEPARTMENT OF [facility].
[2021-06-16] MEDS ORDERED: HYDROMORPHONE 2 MG/1 ML DISP.SYRIN ONE (14:14)
[2021-06-16 14:47] LABS: *BILIRUBIN,URIN 2+ (NEGATIVE); *CLARITY,URINE CLEAR (CLEAR); *COLOR,URINE DARK YELLOW (YELLOW); *KETONES,URINE NEGATIVE (NEGATIVE); LEUKOCYTE ESTERASE ,URINE NEGATIVE (NEGATIVE); NITRITE, URINE NEGATIVE (NEGATIVE); PH,URINE 5.5 (5.0-8.0); UGLUCOSE NEGATIVE (NEGATIVE)
[2021-06-16 14:51] LABS: *BLOOD, URINE TRACE LYSED (NEGATIVE)
[2021-06-16 14:59] LABS: *CREATININE,URINE 167.2 mg/dL (30-125); *URINE TOTAL PROTEIN RANDOM 53.7 mg/dL (<150/24HR)
[2021-06-16 15:27] LABS: BACTERIA,URINE NONE SEEN /HPF (NONE SEEN); SQUAMOUS EPITHELIAL CELL,UR NONE SEEN /HPF (NONE SEEN); WBC,URINE 0-3 /HPF (0-3)
--- NOTE | 2021-06-16 15:43 | NUR ---
PT CAME BACK AFTER MRI PROCEDURE. NO S/S OF ACUTE DISTRESS AT THIS TIME. CONTINUE TO MONITOR THE PT.
--- NOTE | 2021-06-16 19:14 | NUR ---
REPORT WAS GIVEN TO RN M/S. PT WAS TRANSFERED TO ROOM #310.
--- NOTE | 2021-06-16 19:18 | NUR ---
RECEIVED PATIENT FROM ED 60 YEARS OLD MALE BY W/CHAIR WITH DX OF PANCREATITIS PLACED INTO BED FIXED AND MADE COMFORTABLE PATIENT IS ALERT AND ORIENTED AMBULATORY ORIENTED TO ROOM AND HOSPITAL PROTOCOL HEPLOCK REMAINS INTACT WILL BE ON IVF ORDERED HE IS NPO AT THIS TIME INSTRUCTED AND EDUCATED AND HE EXPRESSED UNDERSTANDING.
[2021-06-16 21:00] VITALS: BP 127/74
--- NOTE | 2021-06-16 21:15 | NUR ---
C/O ABDOMINAL PAIN MEDICATED WITH DILAUDID ORDERED MADE COMFORTABLE WILL CONTINUE TO OBSERVE.
[2021-06-16] MEDS: HYDROMORPHONE 2 MG/1 ML DISP.SYRIN IV PRN (21:23)
--- NOTE | 2021-06-16 23:20 | NUR ---
IV SITE RIGHT ANTECUBITAL LEAKING REMOVED AND REINSERTED TO HIS RIGHT WRIST WITH ONE ATTEMPT WITH GAUGE 20 AND IVF CONTINUED ORDERED.
[2021-06-17] MEDS: HYDROMORPHONE 2 MG/1 ML DISP.SYRIN IV PRN ×6 (01:24→21:04)
--- NOTE | 2021-06-17 01:24 | NUR ---
COMPLAINING OF SEVERE PAIN IN HIS ABDOMEN MEDICATED WITH DILAUDID ORDERED PATIENT IS VERY ANXIOUS AND RESTLESS STATED THAT THE DILAUDID IS NOT EFFECTIVE HERE IT WAS IN THE ED DEPT BUT A FEW MINUTES AFTER I GAVE IT TO HIM HE STATED THAT HE WAS FEELING THE EFFECT AND FEELS LIKE IT WAS WORKING NOW.PATIENT REASSURED MADE COMFORTABLE WILL OBSERVE.
[2021-06-17] MEDS: ONDANSETRON 4 MG/2 ML VIAL IV PRN ×2 (01:25→20:40)
[2021-06-17 04:00] VITALS: BP 109/67
--- NOTE | 2021-06-17 04:54 | NUR ---
PATIENT IS AWAKE NOW AND STATED SLEPT WELL BUT THE PAIN IS BACK AGAIN MEDICATED WITH DILAUDID ORDERED WILL CONTINUE TO OBSERVE.
--- NOTE | 2021-06-17 06:32 | NUR ---
RESTING AND COMFORTABLE AT THIS TIME.
--- NOTE | 2021-06-17 07:30 | NUR ---
RECEIVED SITTING AT EDGE OF THE BED APPEARS RESTLESS AND TAPPING IN LEGS. NO ACUTE DISTRESS. NS IV HYDRATION ONGOING AND TOLERATED. KEPT NPO. WILL CONTINUE TO MONITOR.
[2021-06-17 07:54] LABS: HEMATOCRIT 48.5 % (36.7-47.1); MEAN CORPUSCULAR HEMOGLOBIN 27.3 uug (23.8-33.4); MEAN CORPUSCULAR VOLUME 84.4 fL (73.0-96.2); PLATELET COUNT (AUTO) 224 K/uL (152-348)
[2021-06-17 08:19] LABS: CREATININE 1.3 mg/dL (0.6-1.3); MAGNESIUM 1.7 mg/dL (1.8-2.4); PHOSPHOROUS 2.7 mg/dL (2.5-4.9); POTASSIUM 4.3 mmol/L (3.5-5.1); TOTAL PROTEIN, SERUM 6.8 g/dL (6.4-8.2)
[2021-06-17] MEDS: MAGNESIUM SULFATE/D5W 100 ML IV SCH ×2 (09:46→11:05)
[2021-06-17] MEDS: IV NS 1000 ML 1,000 ML IV PRN (09:46)
--- NOTE | 2021-06-17 10:30 | NUR ---
RECEIVED CALL FROM KENYA AT OR. RECEIVED DR. WALLACE'S ORDER FOR ERCP TOMORROW 9AM. PATIENT MADE AWARE AND AGREED.
[2021-06-17] MEDS ORDERED: KETOROLAC TROMETHAMINE 15 MG INJ IVP PRN (11:00)
[2021-06-17 11:30] VITALS: BP 108/65
[2021-06-17] MEDS ORDERED: LORAZEPAM 2 MG/1 ML VIAL IV ONE (13:30)
--- NOTE | 2021-06-17 13:45 | NUR ---
Patient is verbally aggressive to staff, agitated walking around the room and station. Informed Dr. Hennessy with order for Ativan 1mg x1 noted and carried out.
[2021-06-17] MEDS ORDERED: CELECOXIB 200 MG CAPSULE PO PRN (14:45)
[2021-06-17 16:00] VITALS: BP 107/73
--- NOTE | 2021-06-17 19:00 | NUR ---
PATIENT ALERT AND ORIENTED X4 WATCHING TV. NO ACUTE DISTRESS. IV INTACT WITH NS IV HYDRATION TOLERATED. NEEDS ATTENDED. KEPT COMFORTABLE. CALL LIGHT IN REACH. WILL ENDORSE ACCORDINGLY.
[2021-06-17 20:05] VITALS: BP 110/69
[2021-06-17] MEDS: ATORVASTATIN 10 MG TABLET PO SCH (20:30)
--- NOTE | 2021-06-17 21:35 | NUR ---
Patient awake c/o abd'l pain with nausea and vomiting .Per patient he vomited x1 earlier. Zofran IVP given and Dilaudid IVP with good effect. Patient remain NPO .IV on right wrist with IVF running well.Tolerated well. Patient ambulates to bathroom .Voided well.Call light with in reach.Will continue to monitor.
--- NOTE | 2021-06-18 00:21 | NUR ---
Patient started to get anxious and continuously asking for his Ativan. notified with new order noted and carried out. Ativan IVP given with good result.
[2021-06-18] MEDS: LORAZEPAM 2 MG/1 ML VIAL IV PRN ×3 (00:25→22:03)
[2021-06-18] MEDS: IV NS 1000 ML 1,000 ML IV PRN (00:35)
[2021-06-18 04:05] VITALS: BP 110/72
[2021-06-18 06:22] LABS: HEMATOCRIT 48.9 % (36.7-47.1); MEAN CORPUSCULAR HEMOGLOBIN 27.7 uug (23.8-33.4); MEAN CORPUSCULAR VOLUME 85.1 fL (73.0-96.2); PLATELET COUNT (AUTO) 219 K/uL (152-348)
[2021-06-18 06:57] LABS: MAGNESIUM 2.2 mg/dL (1.8-2.4); PHOSPHOROUS 2.5 mg/dL (2.5-4.9); POTASSIUM 4.2 mmol/L (3.5-5.1)
--- NOTE | 2021-06-18 07:30 | NUR ---
Patient received in bed, alert and oriented x3, moments of forgetfulness and requires reorientation. No complaints of pain or discomforts at this time. No acute distress noted. Patient is on RA with no SOB or difficulties breathing. Right wrist 20G patent running IVF at 75 mL/h as ordered. Patient has ERCP with Dr. Victoria at 9AM today, with pickup at 8:30AM. Patient aware and consent was signed. Personal belongings and call light within easy reach. Will continue to monitor.
[2021-06-18] MEDS ORDERED: IOHEXOL 300MG/ML 50 ML VIAL ONE (07:45)
[2021-06-18] MEDS ORDERED: INDOMETHACIN 50 MG SUPP.RECT RC ONE (07:46)
--- NOTE | 2021-06-18 08:00 | NUR ---
After reviewing AM lab results, glucose 52. Notified
[2021-06-18] MEDS ORDERED: DEXTROSE 50% 50 ML DISP.SYRIN IV ONE (08:30)
[2021-06-18 08:42] LABS: AMYLASE 58 U/L (25-115); LIPASE 155 U/L (73-393)
[2021-06-18] MEDS: LISINOPRIL 20 MG TABLET PO SCH (09:00)
[2021-06-18] MEDS ORDERED: Medication Not On Formulary EA (Rosuvastatin Calcium (Crestor) 20 MG) PO SCH (09:00)
[2021-06-18] MEDS: ASPIRIN 81 MG TAB.CHEW PO SCH (09:00)
[2021-06-18] MEDS ORDERED: Tadalafil (Cialis) 5 MG) PO SCH (09:00)
[2021-06-18] MEDS ORDERED: DOLUTEGRAVIR SODIUM 50 MG PO SCH (09:00)
[2021-06-18] MEDS: MODAFINIL 100 MG TABLET PO SCH (09:00)
[2021-06-18] MEDS ORDERED: VILAZODONE HYDROCHLORIDE 40 MG PO SCH (09:00)
--- NOTE | 2021-06-18 09:00 | NUR ---
BS WAS RETAKEN IN OR. 72 PER OR NURSE REPORT.
[2021-06-18] MEDS ORDERED: FENTANYL CITRATE 100 MCG/2 ML AMPUL ONE (09:09)
[2021-06-18] MEDS ORDERED: SUCCINYLCHOLINE CHLORIDE 200 MG/10 ML VIAL IV ONE (09:56)
[2021-06-18] MEDS ORDERED: PHENYLEPHRINE 10 MG/1 ML VIAL IV ONE (09:56)
[2021-06-18] MEDS ORDERED: LIDOCAINE-MPF 2% 5 ML VIAL IJ ONE (09:56)
[2021-06-18] MEDS ORDERED: PROPOFOL 200 MG/20 ML BOTTLE IV ONE (09:56)
[2021-06-18] MEDS ORDERED: DEXAMETHASONE SOD PHOSPHATE 4 MG INJ IV ONE (09:56)
[2021-06-18] MEDS ORDERED: SEVOFLURANE 250 ML BOTTLE IH ONE (09:56)
--- NOTE | 2021-06-18 11:03 | NUR ---
PER PHARMACY, THEY NEED SOME MEDICATIONS FROM HOME. LIST OF REQUESTED MEDICATIONS GIVEN TO VLAD PEREZ, PATIENT'S , WHO IS AT BEDSIDE AT THIS TIME.
[2021-06-18] MEDS: HYDROMORPHONE 2 MG/1 ML DISP.SYRIN IV PRN ×4 (11:32→23:17)
[2021-06-18 12:00] VITALS: BP 117/83
--- NOTE | 2021-06-18 12:30 | NUR ---
Patient voided clear yellow urine s/p ERCP
--- NOTE | 2021-06-18 14:00 | NUR ---
Patient's at bedside and brought home medications that were requested by pharmacy. Recorded and given to pharmacy.
[2021-06-18] MEDS: DESCOVY PO SCH (15:30)
[2021-06-18] MEDS: TIVICAY 50 MG PO SCH (15:30)
[2021-06-18] MEDS: VIIBRYD 40 MG PO SCH (15:30)
[2021-06-18 16:00] VITALS: BP 120/63
[2021-06-18 17:22] LABS: ALPHA-1-GLOBULIN 0.3
[2021-06-18 17:23] LABS: A/G RATIO 0.8; ALPHA-2-GLOBULIN 0.9; BETA GLOBULIN 0.9; GLOBULIN, TOTAL 3.1
[2021-06-18] MEDS ORDERED: PIPERACILLIN SODIUM/TAZOBACTAM 3.375 G in IV DEXTROSE 5% 50 ML IV SCH (18:00)
--- NOTE | 2021-06-18 18:05 | NUR ---
Patient noted to have pulled out IV. Will need another access.
--- NOTE | 2021-06-18 20:00 | NUR ---
RECEIVED PATIENT AWAKE IN BED. A/O X3-4. NEW IV STARTED TO RIGHT FA #20 GAUGE. IVF INFUSING. VS WNL. CALL LIGHT IN REACH. ALL NEEDS ATTENDED. WILL CONTINUE TO MONITOR AND ASSESS.
[2021-06-18 20:15] VITALS: BP 115/78
[2021-06-18] MEDS: CIPROFLOXACIN HCL 250 MG TABLET PO SCH (20:20)
[2021-06-18] MEDS: ATORVASTATIN 10 MG TABLET PO SCH (20:20)
[2021-06-18] MEDS: METRONIDAZOLE 500 MG TABLET PO SCH (22:03)
[2021-06-19] MEDS: HYDROMORPHONE 2 MG/1 ML DISP.SYRIN IV PRN ×2 (02:36→10:31)
[2021-06-19 04:15] VITALS: BP 107/60
[2021-06-19] MEDS: IV NS 1000 ML 1,000 ML IV PRN (06:18)
[2021-06-19] MEDS: METRONIDAZOLE 500 MG TABLET PO SCH ×2 (06:18→15:08)
--- NOTE | 2021-06-19 06:27 | NUR ---
PATIENT ASLEEP IN BED. IVF INFUSING WELL. VS WNL. CALL LIGHT IN REACH. WILL CONTINUE TO MONITOR AND ASSESS.
[2021-06-19 06:34] LABS: HEMATOCRIT 47.8 % (36.7-47.1); MEAN CORPUSCULAR HEMOGLOBIN 26.8 uug (23.8-33.4); MEAN CORPUSCULAR VOLUME 84.3 fL (73.0-96.2); PLATELET COUNT (AUTO) 273 K/uL (152-348)
[2021-06-19 07:00] LABS: BILIRUBIN,DIRECT 2.4 mg/dL (0.0-0.2); BILIRUBIN,TOTAL 2.8 mg/dL (0.2-1.0); CREATININE 1.2 mg/dL (0.6-1.3); MAGNESIUM 2.2 mg/dL (1.8-2.4); PHOSPHOROUS 1.4 mg/dL (2.5-4.9); POTASSIUM 4.5 mmol/L (3.5-5.1); TOTAL PROTEIN, SERUM 6.3 g/dL (6.4-8.2)
--- NOTE | 2021-06-19 07:30 | NUR ---
Patient received in bed with eyes closed, but easily arousable. No acute distress noted. Patient is on RA with no SOB or difficulties breathing. Right FA 20G patent running IVF at 75 mL/h as ordered. Personal belongings and call light within easy reach. Will continue to monitor.
[2021-06-19] MEDS: MODAFINIL 100 MG TABLET PO SCH (08:46)
[2021-06-19] MEDS: ASPIRIN 81 MG TAB.CHEW PO SCH (08:46)
[2021-06-19] MEDS: LISINOPRIL 20 MG TABLET PO SCH (08:47)
[2021-06-19] MEDS: CIPROFLOXACIN HCL 250 MG TABLET PO SCH (08:47)
[2021-06-19] MEDS: TIVICAY 50 MG PO SCH (08:47)
[2021-06-19] MEDS: VIIBRYD 40 MG PO SCH (08:47)
[2021-06-19] MEDS: DESCOVY PO SCH (08:47)
[2021-06-19] MEDS ORDERED: HYDROCODONE/APAP 5-325MG TABLET PO PRN (11:00)
[2021-06-19 11:43] VITALS: BP 106/58
[2021-06-19] MEDS ORDERED: HYDR-3972 PO (12:21)
[2021-06-19] MEDS ORDERED: METR-147 PO (12:21)
[2021-06-19] MEDS ORDERED: CIPR250T4 PO (12:21)
[2021-06-19] MEDS: ONDANSETRON 4 MG/2 ML VIAL IV PRN (15:08)
[2021-06-19] MEDS ORDERED: NEUTRA PHOS PACKET PO ONE (15:15)
--- NOTE | 2021-06-19 16:00 | NUR ---
Patient discharged in satisfactory condition with all his personal belongings including home medications. picked him up from floor. Patient was given instructions on following up with GI within a week and picking up new prescription. Both patient and spouse expressed understanding.
== END 2021-06-19 16:10 | disposition home or self-care (01) | DRG 438 ==
LOC: ER 22:46 → TRANSITION 06-16 06:03 → MEDSURG3 06-16 18:33
PROVIDERS: ADMIT Student in an Organized Health Care Education/Training Program; ATTEND Student in an Organized Health Care Education/Training Program
PROC: 0F998ZZ Drainage of Common Bile Duct, Via Natural or Artificial Opening Endoscopic (ICD-10-PCS; 2021-06-16)
PROC: 0F798DZ Dilation of Common Bile Duct with Intraluminal Device, Via Natural or Artificial Opening Endoscopic (ICD-10-PCS; principal; 2021-06-18)
DX: K85.10 Biliary acute pancreatitis without necrosis or infection (principal); K83.1 Obstruction of bile duct; N17.0 Acute kidney failure with tubular necrosis; E44.1 Mild protein-calorie malnutrition; E87.1 Hypo-osmolality and hyponatremia; K86.89 Other specified diseases of pancreas; E83.52 Hypercalcemia; E11.65 Type 2 diabetes mellitus with hyperglycemia; E78.5 Hyperlipidemia, unspecified; Z79.84 Long term (current) use of oral hypoglycemic drugs; E86.1 Hypovolemia; I10 Essential (primary) hypertension; K44.9 Diaphragmatic hernia without obstruction or gangrene
CPT/HCPCS: 36415; 43264; 70030-TC; 71045; 74018; 74181; 83690; 83735; 83970; 84100; 84155; 84156; 84165; 84300; 85025; 93005; A4663; C1876; G0378; J0330; J0780; J1100; J1170; J1885; J2060; J2370; J2405; J3010; J3475; J3490; J7030; J7042; J7060; Q9967